=== PATIENT | female | born 1985 | race Caucasian/White ===

== ENCOUNTER → 2022-05-25 11:54 | Outpatient (BNVA) | payer SELFPAY | PROVIDERS: Family Provider Nurse Practitioner; PCP Nurse Practitioner; Visit Provider Nurse Practitioner | DX: G47.00 Insomnia, unspecified (principal) | CPT/HCPCS: 80053; 84443 ==

== ENCOUNTER 2024-06-13 13:14 | Emergency (ER) | payer SELFPAY ==
[2024-06-13 13:20] VITALS: BP 125/84; PULSE 100; RESP 16; TEMP 36.6; O2SAT 95
--- NOTE | 2024-06-13 14:10 | US_ITS ---
WS: [id number] RIGHT UPPER QUADRANT ULTRASOUND HISTORY: epigastric abd pain COMPARISON: None available. Liver: 15.0 cm in length. Normal size liver and echogenicity. No bile duct dilatation or mass. Portal Vein: Normal hepatopetal flow with monophasic waveform. Gallbladder: Normally distended gallbladder with numerous stones and shadowing. No pericholecystic fluid. Mild gallbladder wall thickening without pericholecystic fluid. CBD: 0.6 cm Pancreas: Normal size and echogenicity. Right kidney: 10.3 cm in length. Normal size and echogenicity. No hydronephrosis or mass. Aorta and IVC: Unremarkable abdominal aorta and IVC. No ascites. US/US gall bladder [id number] IMPRESSION: 1. Cholelithiasis without evidence for acute cholecystitis. 2. Common bile duct is measuring top normal size at 0.6 cm.
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
[2024-06-13 14:36] LABS: Basophils % 0.3 %; Eosinophils % 0.3 %; Hematocrit 39.1 % (36-47); Lymphocytes # 0.9 10^3/uL (0.8-4.8); Lymphocytes % 7.1 %; Mean Corpuscular HGB Conc 33.5 g/dL (30-55); Mean Corpuscular Hemoglobin 32.4 pg (27-33); Mean Corpuscular Volume 96.8 fl (85-98); Mean Platelet Volume 10.1 fL (7.4-10.4); Monocytes # 0.6 10^3/uL (0.2-0.9); Monocytes % 4.7 %; Neutrophils % 87.1 %; Nucleated Red Blood Cells % 0 %; Platelet Count 480 10^3/cmm (157-399); Red Blood Count 4.04 10^6/uL (3.85-5.65)
[2024-06-13 14:48] LABS: HCG, Serum Qual Negative (Negative)
[2024-06-13 14:54] LABS: Alanine Aminotransferase 199 U/L (0-33); Albumin Level 4.4 g/dL (3.5-5.2); Alkaline Phosphatase 274 U/L (35-105); Anion Gap 15.7 (5-19); Aspartate Amino Transferase 200 U/L (0-32); Blood Urea Nitrogen 6 mg/dL (6-20); Calcium 9.3 mg/dL (8.5-10.5); Carbon Dioxide 25 mmol/L (22-29); Chloride 103 mmol/L (98-107); Creatinine Clr Calc Pharmacy 123.7835; Glomerular Filtration Rate 138.1 mL/min (90-130); Glucose 98 mg/dL (65-115); Lipase 28 U/L (13-60); Osmolality Calculated 288 mOsm/kg (285-295); Potassium 3.7 mmol/L (3.5-5.1); Sodium 140 mmol/L (136-145); Total Bilirubin 1.5 mg/dL (0.15-1.2); Total Protein 7.4 g/dL (6.6-8.7)
[2024-06-13 15:27] LABS: Bilirubin Urine Negative (Negative); Blood Urine 3+ (Negative); Glucose Urine UA Negative (Normal); Ketones Urine Negative (Negative); Leukocyte Esterase Urine Trace (Negative); Nitrate Urine Negative (Negative); Protein Urine Negative (Negative); Specific Gravity, Urine 1.012 (1.005-1.030); Urine Appearance Clear (CLEAR); Urine Color Yellow (Yellow); pH Urine 5.5 (5-7)
[2024-06-13 15:32] LABS: Add Urine Microscopic? YES; Bacteria Urine None Seen /hpf; RBC Urine >100 /hpf (0-2); Squamous Epithelial Cell Urine 0-5 /hpf (0-5); WBC Urine 0-5 /hpf (0-5)
[2024-06-13 15:34] LABS: Add Urine Culture? Yes
[2024-06-13] MEDS: amoxicillin-clav 875-125 mg Tablet 1 TAB PO (16:36)
--- NOTE | 2024-06-14 07:47 | DCPLANNER ---
Message sent to General Surgery for follow up- Patient presented with intermittent epigastric abdominal pain workup reveals a leukocytosis and abnormal LFTs as well as ultrasound demonstrates cholelithiasis but no evidence of acute cholecystitis. Patient send symptoms and abnormal findings likely secondary to biliary colic. She was reexamined again following the workup and she is completely asymptomatic at this time there is no fever no abdominal pain and her abdominal exam is benign without any tenderness. General surgery were consulted and I spoke with Dr. Rito Melgar who agrees to follow-up with her in the outpatient clinic and request starting her on 7-day course of Augmentin.
== END 2024-06-13 16:33 | disposition home or self-care (01) ==
PROVIDERS: Emergency Provider Emergency Medicine; PCP Nurse Practitioner
DX: K80.50 Calculus of bile duct without cholangitis or cholecystitis without obstruction (principal); Z87.891 Personal history of nicotine dependence
CPT/HCPCS: 36415; 76705; 80053; 81001; 83690; 84703; 85025; 87086; 99284; J9999

== ENCOUNTER 2024-07-31 06:23 | Day surgery (SDC) | payer SELFPAY ==
[2024-07-31] VITALS (13 sets, daily range): BP systolic 104–118; BP diastolic 51–74; PULSE 74–98; RESP 12–18; TEMP 36.2–36.8; O2SAT 95–100; BMI 19.5
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
[2024-07-31 06:40] LABS: OR HCG Qualitative Urine Negative (Negative)
[2024-07-31] MEDS: sodium chloride 0.9% 1,000 ML 30 ML IV (07:00)
[2024-07-31] MEDS: ceFAZolin 2,000 mg SDV 2000 MG IVP (07:00)
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
[2024-07-31] MEDS: BUPivacaine 0.25% INJ 30 mL 10 ML INJECTION (07:18)
[2024-07-31] MEDS: lidocaine-epi 1% 20 mL INJ 10 ML INJECTION (07:18)
--- NOTE | 2024-07-31 08:43 | PM.OP ---
Operative Report Date of procedure: July 31, 2024 Pre-op diagnosis: Symptomatic cholelithiasis Post-op diagnosis: Same Post-op findings: Gallbladder was intrapelvic in the lower two thirds, the cystic duct was significantly dilated multiple stones appeared to be in the neck and cystic duct. Procedure done: Laparoscopic cholecystectomy Specimens removed/disposition: Gallbladder Surgeon: Stanislaw Veliz MD Waiter/Waitress First Class: KARAN OR STaff Estimated blood loss: 10cc Complications: None apparent Brief History: There is a 39-year-old female who presented to my clinic with symptomatic cholelithiasis. After discussion we will reason for benefits with side to proceed to the OR for laparoscopic possible open cholecystectomy. Procedure: Patient was brought into the OR, she was placed in a supine position. General anesthesia was given. The abdomen was prepped draped in usual sterile fashion and a timeout was conducted. The abdomen was accessed via 5 mm Optiview trocar in the left upper quadrant. Initial pneumoperitoneum was obtained and no evidence of visceral injury during entry was noted. Additional 12 mm trocar was placed in the infraumbilical location and 5 mm trocars were placed in the epigastrium right upper quadrant and right flank under direct visualization. The gallbladder was grasped by the fundus some retracted cephalad. There was a thin adhesion from the pericolonic tissue to the gallbladder that was taken down bluntly. The gallbladder appeared to be intrahepatic in the lower two thirds. I dropped the infundibulum and collating the inferolateral direction exposing the hepatocystic triangle, the peritoneum anterior to the hepatocystic triangle was opened with electrocautery, the opening was carried in the medial and lateral direction to the edges of the liver and then on the sides of the gallbladder to allow for better exposure. With careful blunt dissection and electrocautery I was able to encircle the cystic duct and the cystic artery, I also was able to evaluate the lower one third of the gallbladder from the liver bed thus creating a critical view of safety. The cystic artery was double clipped proximal single clipped distally and transected. The cystic duct appeared to be dilated, I use a grasper to milk out any stones from the 16-week dog to the gallbladder and after these use 3 clips proximally and 1 clip distally to clip the cystic duct and proceeded to transect. The gallbladder was removed from the liver bed using electrocautery. No evidence of residual bleeding or bile leak was noted after removal of the gallbladder. The specimen was retrieved via the umbilical trocar site in an Endo Catch bag. The umbilical trocar site was then closed with a #0 Vicryl in a Devon-Kali suture passer under direct visualization. The right upper quadrant epigastrium and right flank trocars were removed under direct visualization, the left upper quadrant trocar was used to evacuate the pneumoperitoneum and subsequently removed. Local anesthesia was infiltrated in the wounds and hemostasis was achieved. The wounds were closed in layers using #3-0 Vicryl for the subcutaneous tissue #4 Monocryl for the skin. Dermabond was applied. At the end of the procedure all counts were correct, the patient tolerated well the procedure and was transferred to the PACU in stable condition
[2024-07-31] MEDS: ondansetron 2 mg/ML SDV 2 mL 4 MG IVP ×2 (08:54→09:45)
[2024-07-31] MEDS: ketorolac 30 mg/mL INJ (09:01)
--- NOTE | 2024-07-31 09:07 | SUR.PHASEI ---
0855 pt refuses any narcotic pain medication.
[2024-07-31] MEDS: meperidine 50 mg/mL INJ 12.5 MG IVP (10:00)
--- NOTE | 2024-07-31 10:40 | ANE.PACU2 ---
Inpatient post-anesthesia follow up: Vital signs: Temperature 98.1 F Pulse Rate 82 Respiratory Rate 18 Blood Pressure 104/72 Pulse Oximetry 96 Oxygen Delivery Me thod Room Air Oxygen Flow Rate Fraction of Inspir ed Oxygen
== END 2024-07-31 10:40 | disposition home or self-care (01) ==
PROVIDERS: PCP Nurse Practitioner; Visit Provider Surgery
PROC: 0FT44ZZ Resection of Gallbladder, Percutaneous Endoscopic Approach (ICD-10-PCS; CPT 47562; principal; 2024-07-31 07:00)
DX: K80.10 Calculus of gallbladder with chronic cholecystitis without obstruction (principal); Z87.891 Personal history of nicotine dependence
CPT/HCPCS: 47562; 81025; 88304; A4216; J0690; J1100; J1171; J1885; J2175; J2250; J2371; J2405; J2704; J3010; J3490; J7030; J9999